=== PATIENT | male | born 1995 | race Two or more races ===

== ENCOUNTER 2017-12-02 02:56 | Emergency (ER) | payer MEDICAID, OTHER ==
[~2017-12-02] VITALS: Ht 175.3 cm; Wt 68.0 kg
[2017-12-02] MEDS ORDERED: DICYCLOMINE 10 MG (03:47)
[2017-12-02] MEDS ORDERED: DOCUSATE SOD (03:47)
[2017-12-02] MEDS ORDERED: DICYCLOMINE HCL 10 MG/5 ML UDC LIQ PO ONE (04:00)
[2017-12-02] MEDS ORDERED: OXYCODONE/APAP 5-325 MG TABLET PO ONE (04:00)
[2017-12-02] MEDS ORDERED: DICYCLOMINE HCL 10 MG/5 ML UDC LIQ ONE (04:14)
[2017-12-02] MEDS ORDERED: OXYCODONE/APAP 5-325 MG TABLET ONE (04:14)
[2017-12-02 04:26] LABS: CREATININE 0.9 mg/dL (0.6-1.3); POTASSIUM 3.6 mmol/L (3.5-5.1)
[2017-12-02 04:27] LABS: BASOPHILS % (AUTO) 0.3 % (0.0-2.0); EOSINOPHILS # (AUTO) 0.1 K/uL (0.0-0.7); EOSINOPHILS % (AUTO) 0.8 % (0.0-7.0); HEMATOCRIT 42.3 % (40-50); HEMOGLOBIN 14.6 G/DL (14.0-18.0); LYMPHOCYTES # (AUTO) 2.4 K/UL (0.8-4.8); LYMPHOCYTES % (AUTO) 25.4 % (20.5-51.5); MEAN CORPUSCULAR HEMOGLOBIN 31.2 UUG (27.0-31.0); MEAN CORPUSCULAR HGB CONC 35 g/dL (32.0-37.0); MEAN CORPUSCULAR VOLUME 90.3 FL (82.0-92.0); MONOCYTES # (AUTO) 0.5 K/UL (0.1-1.30); MONOCYTES % (AUTO) 5.3 % (0.0-11.0); NEUTROPHILS # (AUTO) 6.4 K/UL (1.8-8.9); NEUTROPHILS % (AUTO) 68.2 % (38.5-71.5); PLATELET COUNT (AUTO) 223 K/UL (150-450); RED BLOOD CELL COUNT(AUTO) 4.69 MIL/UL (4.7-6.1); WHITE BLOOD COUNT (AUTO) 9.4 K/UL (4.0-11.2)
[2017-12-02 04:32] LABS: BILIRUBIN,DIRECT 0.1 mg/dL (0.0-0.2); BILIRUBIN,TOTAL 0.4 mg/dL (0.2-1.0); TOTAL PROTEIN, SERUM 7.8 g/dL (6.4-8.2)
[2017-12-02] MEDS ORDERED: MAGNESIUM CITRATE 296 ML BOTTLE PO ONE (04:45)
[2017-12-02] MEDS ORDERED: MAGNESIUM HYDROXIDE 30 ML LIQUID UDC PO ONE (04:45)
--- NOTE | 2017-12-02 05:03 | NUR ---
Patient discharged to home in stable conditon. Written and verbal after care instructions given. Patient verbalizes understanding of instructions.
[2017-12-02] MEDS ORDERED: MAGNESIUM HYDROXIDE 30 ML LIQUID UDC ONE (05:17)
[2017-12-02] MEDS ORDERED: MAGNESIUM CITRATE 296 ML BOTTLE ONE (05:17)
== END 2017-12-02 05:04 | disposition home or self-care (01) ==
LOC: ER 03:02
DX: K59.00 Constipation, unspecified (principal); R10.9 Unspecified abdominal pain
CPT/HCPCS: 36415; 83690; 85025; A4663